=== PATIENT | female | born 1930 | race Caucasian/White ===

== ENCOUNTER 2017-06-16 15:35 | Inpatient (IN) | payer OTHER ==
[~2017-06-16] VITALS: Ht 157.5 cm; Wt 55.1 kg
[~2017-06-16 15:35] MED LIST: ACET325T53 PO; ALEN10TA6 PO; ALEN70TA3 PO; AMLO5TAB4 PO; ASCO500T20 PO; ASPI81TA2 PO; ATEN-167 PO; BENA20TA75 PO; CALC260T7 PO; DICL50TA9; DOCU-144 PO; DONE10TA44 PO; DULR10 RC; LIP10; MAGN400O4 PO; MEMA10TA12 PO; MULT-300 PO; MULTIVITAMIN WITH; NA P118E RC; PRO40 PO
[2017-06-16 19:37] VITALS: BP_SYST 149
[2017-06-16 20:00] VITALS: BP_SYST 149
[2017-06-16] MEDS ORDERED: DULR10 RC (20:31)
[2017-06-16] MEDS ORDERED: LACT1CAP7 PO (21:05)
[2017-06-16] MEDS ORDERED: CALC1TAB26 PO (21:09)
[2017-06-16] MEDS ORDERED: FAMO20TA8 PO (21:09)
[2017-06-16] MEDS ORDERED: MILK OF MAGNESIA 30 ML UDC PO PRN ×2 (21:30)
[2017-06-16] MEDS ORDERED: BISACODYL 10 MG/SUPPOSITORY RC PRN (21:30)
[2017-06-16] MEDS ORDERED: ACETAMINOPHEN 325 MG TABLET PO PRN (21:30)
[2017-06-16 21:55] LABS: BILIRUBIN,URINE NEGATIVE (NEGATIVE); CLARITY/URINE HAZY (CLEAR); COLOR,URINE YELLOW (YELLOW); GLUCOSE,URINE NEGATIVE (NEGATIVE); KETONES,URINE NEGATIVE (NEGATIVE); LEUKOCYTE ESTERASE ,URINE 2+ (NEGATIVE); NITRITE, URINE POSITIVE (NEGATIVE); PROTEIN URINE NEGATIVE (NEGATIVE); UROBILINOGEN,URINE 0.2 (0.2-1.0)
[2017-06-16 22:00] LABS: BLOOD, URINE TRACE (NEGATIVE)
[2017-06-16 22:06] LABS: BACTERIA,URINE MANY /HPF (None Seen); WBC,URINE 50-80 /HPF (0-3)
[2017-06-16] MEDS ORDERED: CEFEPIME 1 GM/VIAL (MAXIPIME) ONE (23:13)
[2017-06-16] MEDS: KCL 20 mEq in D5NS 1000 mL 1,000 ML IV SCH (23:23)
[2017-06-16] MEDS: CEFEPIME 1 GM in D5W 50 ML IV SCH (23:24)
[2017-06-17 00:45] VITALS: BP_SYST 152
[2017-06-17] MEDS: FAMOTIDINE 20 MG TABLET PO SCH (05:09)
[2017-06-17 07:28] LABS: BASOPHILS % (AUTO) 0.6 % (0.0-2.0); EOSINOPHILS # (AUTO) 0.3 K/uL (0.0-0.4); EOSINOPHILS % (AUTO) 4.6 % (0.0-4.0); HEMATOCRIT 34.6 % (36-48); HEMOGLOBIN 11.8 g/dL (12.0-16.0); LYMPHOCYTES # (AUTO) 1.8 K/uL (1.0-5.5); LYMPHOCYTES % (AUTO) 27.8 % (20.5-51.5); MEAN CORPUSCULAR HEMOGLOBIN 31 pg (27-31); MEAN CORPUSCULAR HGB CONC 34 % (32-36); MEAN CORPUSCULAR VOLUME 89 fL (79.0-98.0); MONOCYTES # (AUTO) 0.6 K/uL (0.0-1.0); MONOCYTES % (AUTO) 8.6 % (1.7-9.3); NEUTROPHILS # (AUTO) 3.8 K/uL (1.8-7.7); NEUTROPHILS % (AUTO) 58.4 % (40.0-70.0); PLATELET COUNT (AUTO) 237 K/uL (130-430); RED BLOOD CELL COUNT(AUTO) 3.87 MIL/uL (4.2-6.2); WHITE BLOOD COUNT (AUTO) 6.5 K/uL (4.8-10.8)
[2017-06-17 07:33] LABS: ANION GAP 8 (5-15); CALCIUM 8.5 mg/dL (8.4-11.0); CHLORIDE 111 mmol/L (98-107); CREATININE 0.92 mg/dL (0.55-1.30); GLUCOSE 103 mg/dL (70-99); POTASSIUM 4.9 mmol/L (3.5-5.1); SODIUM SERUM 144 mmol/L (136-145); UREA NITROGEN, BLOOD 23 mg/dL (8-21)
[2017-06-17 08:00] VITALS: BP_SYST 157
[2017-06-17] MEDS: ASPIRIN 81 MG TAB.CHEW PO SCH (09:16)
[2017-06-17] MEDS: BENAZEPRIL HCL 20 MG TABLET (LOTENSIN) PO SCH (09:16)
[2017-06-17] MEDS: DOCUSATE SODIUM 100 MG CAPSULE PO SCH (09:16)
[2017-06-17] MEDS: ENOXAPARIN SODIUM 40 MG/0.4 ML SYRINGE SUBCUT SCH (09:17)
[2017-06-17] MEDS: ATENOLOL 50 MG TABLET (TENORMIN) PO SCH (09:17)
[2017-06-17] MEDS: CEFEPIME 1 GM in D5W 50 ML IV SCH ×2 (09:23→20:43)
[2017-06-17] MEDS: KCL 20 mEq in D5NS 1000 mL 1,000 ML IV SCH (11:52)
[2017-06-17 12:24] VITALS: BP_SYST 128
[2017-06-17 16:00] VITALS: BP_SYST 121
[2017-06-17 20:00] VITALS: BP_SYST 146
[2017-06-17] MEDS: MEMANTINE HCL 5 MG TABLET PO SCH (20:43)
[2017-06-17] MEDS: DONEPEZIL HCL 5 MG TABLET (ARICEPT) PO SCH (20:43)
[2017-06-18] MEDS: KCL 20 mEq in D5NS 1000 mL 1,000 ML IV SCH ×2 (00:14→15:36)
[2017-06-18 00:36] VITALS: BP_SYST 122
[2017-06-18] MEDS: FAMOTIDINE 20 MG TABLET PO SCH (05:18)
[2017-06-18 08:00] VITALS: BP_SYST 145
[2017-06-18] MEDS: DOCUSATE SODIUM 100 MG CAPSULE PO SCH (08:55)
[2017-06-18] MEDS: ASPIRIN 81 MG TAB.CHEW PO SCH (08:56)
[2017-06-18] MEDS: ATENOLOL 50 MG TABLET (TENORMIN) PO SCH (08:56)
[2017-06-18] MEDS: BENAZEPRIL HCL 20 MG TABLET (LOTENSIN) PO SCH (08:56)
[2017-06-18] MEDS: ENOXAPARIN SODIUM 40 MG/0.4 ML SYRINGE SUBCUT SCH (08:57)
[2017-06-18] MEDS: CEFEPIME 1 GM in D5W 50 ML IV SCH ×2 (08:57→20:45)
[2017-06-18] MEDS ORDERED: ALENDRONATE SODIUM 70 MG TABLET (FOSAMAX) PO SCH (09:00)
[2017-06-18 11:40] VITALS: BP_SYST 111
[2017-06-18 16:43] VITALS: BP_SYST 126
[2017-06-18 20:00] VITALS: BP_SYST 144
[2017-06-18] MEDS: MEMANTINE HCL 5 MG TABLET PO SCH (20:46)
[2017-06-18] MEDS: DONEPEZIL HCL 5 MG TABLET (ARICEPT) PO SCH (20:46)
[2017-06-18 23:50] VITALS: BP_SYST 153
[2017-06-19] MEDS: KCL 20 mEq in D5NS 1000 mL 1,000 ML IV SCH (03:13)
[2017-06-19] MEDS: FAMOTIDINE 20 MG TABLET PO SCH (05:13)
[2017-06-19 06:44] LABS: BASOPHILS % (AUTO) 0.6 % (0.0-2.0); EOSINOPHILS # (AUTO) 0.4 K/uL (0.0-0.4); EOSINOPHILS % (AUTO) 6.2 % (0.0-4.0); HEMATOCRIT 33.3 % (36-48); HEMOGLOBIN 11.4 g/dL (12.0-16.0); LYMPHOCYTES # (AUTO) 1.8 K/uL (1.0-5.5); LYMPHOCYTES % (AUTO) 26.1 % (20.5-51.5); MEAN CORPUSCULAR HEMOGLOBIN 30 pg (27-31); MEAN CORPUSCULAR HGB CONC 34 % (32-36); MEAN CORPUSCULAR VOLUME 88 fL (79.0-98.0); MONOCYTES # (AUTO) 0.5 K/uL (0.0-1.0); MONOCYTES % (AUTO) 7.2 % (1.7-9.3); NEUTROPHILS % (AUTO) 59.9 % (40.0-70.0); PLATELET COUNT (AUTO) 203 K/uL (130-430); RED BLOOD CELL COUNT(AUTO) 3.77 MIL/uL (4.2-6.2); RED CELL DISTRIBUTION WIDTH 12.7 % (9.0-15.0); WHITE BLOOD COUNT (AUTO) 6.7 K/uL (4.8-10.8)
[2017-06-19 07:39] LABS: ANION GAP 7 (5-15); CALCIUM 8.6 mg/dL (8.4-11.0); CHLORIDE 110 mmol/L (98-107); CREATININE 0.77 mg/dL (0.55-1.30); GLUCOSE 102 mg/dL (70-99); POTASSIUM 4.5 mmol/L (3.5-5.1); SODIUM SERUM 138 mmol/L (136-145); UREA NITROGEN, BLOOD 14 mg/dL (8-21)
[2017-06-19 07:40] VITALS: BP_SYST 152
[2017-06-19] MEDS: BENAZEPRIL HCL 20 MG TABLET (LOTENSIN) PO SCH (08:35)
[2017-06-19] MEDS: ASPIRIN 81 MG TAB.CHEW PO SCH (08:35)
[2017-06-19] MEDS: CEFEPIME 1 GM in D5W 50 ML IV SCH (08:35)
[2017-06-19] MEDS: ENOXAPARIN SODIUM 40 MG/0.4 ML SYRINGE SUBCUT SCH (08:37)
[2017-06-19] MEDS: ATENOLOL 50 MG TABLET (TENORMIN) PO SCH (08:37)
[2017-06-19] MEDS: DOCUSATE SODIUM 100 MG CAPSULE PO SCH (08:37)
[2017-06-19 11:50] VITALS: BP_SYST 125
[2017-06-19 15:38] VITALS: BP_SYST 125
[2017-06-19 16:11] VITALS: BP_SYST 120
[2017-06-19] MEDS ORDERED: NITROFURANTOIN MONOHYD/M-CRYST 100 MG CAPSULE PO SCH (21:00)
== END 2017-06-19 17:22 | DRG 690 ==
LOC: SMU 19:05
PROVIDERS: ADMIT Family Medicine; ATTEND Family Medicine
DX: N39.0 Urinary tract infection, site not specified (principal); F03.90 Unspecified dementia, unspecified severity, without behavioral disturbance, psychotic disturbance, mood disturbance, and anxiety; I10 Essential (primary) hypertension; M81.0 Age-related osteoporosis without current pathological fracture; M19.90 Unspecified osteoarthritis, unspecified site; R35.0 Frequency of micturition; Z90.49 Acquired absence of other specified parts of digestive tract
CPT/HCPCS: 36415; 80048; 81000-TC; 85025; 87081; 87086; 87186-TC; J0692; J1650; J7060

== ENCOUNTER 2017-08-21 18:03 | Inpatient (IN) | payer MEDICAID, OTHER ==
[~2017-08-21] VITALS: Ht 157.5 cm; Wt 54.0 kg
[2017-08-21 18:03] VITALS: BP_SYST 89
[~2017-08-21 18:03] MED LIST changes: -ALEN10TA6 PO; -AMLO5TAB4 PO; -ASCO500T20 PO; +CALC1TAB26 PO; -CALC260T7 PO; -DICL50TA9; +FAMO20TA8 PO; +LACT1CAP7 PO; -LIP10; -MULTIVITAMIN WITH; -NA P118E RC; -PRO40 PO
[2017-08-21] MEDS ORDERED: MEGE400O PO (18:45)
[2017-08-21] MEDS ORDERED: ACET-73 PO (18:45)
[2017-08-21 18:51] LABS: MEAN CORPUSCULAR HEMOGLOBIN 31 pg (27-31)
[2017-08-21 19:00] LABS: ANION GAP 27 (5-15); CALCIUM 9.2 mg/dL (8.4-11.0); CHLORIDE 107 mmol/L (98-107); CREATININE 2.86 mg/dL (0.55-1.30); GLUCOSE 269 mg/dL (70-99); HEMATOCRIT 42.6 % (36-48); HEMOGLOBIN 14.4 g/dL (12.0-16.0); INR 1.2 (0.8-1.2); MEAN CORPUSCULAR HGB CONC 34 % (32-36); MEAN CORPUSCULAR VOLUME 92 fL (79.0-98.0); PLATELET COUNT (AUTO) 346 K/uL (130-430); POTASSIUM 4.2 mmol/L (3.5-5.1); PROTHROMBIN TIME 11.7 SECS (9.5-12.5); RED BLOOD CELL COUNT(AUTO) 4.64 MIL/uL (4.2-6.2); RED CELL DISTRIBUTION WIDTH 14.5 % (9.0-15.0); SODIUM SERUM 144 mmol/L (136-145); UREA NITROGEN, BLOOD 44 mg/dL (8-21)
[2017-08-21 19:03] LABS: WHITE BLOOD COUNT (AUTO) 42.2 K/uL (4.8-10.8)
[2017-08-21 19:06] LABS: ALANINE AMINOTRANSFERASE 23 U/L (12-78); ALBUMIN 3.6 g/dL (3.4-4.8); ASPARTATE AMINOTRANSFERASE 27 U/L (10-37); TOTAL BILIRUBIN 1.1 mg/dL (0.0-1.0)
[2017-08-21 19:07] LABS: ACETAMINOPHEN < 1 ug/mL (1-30)
[2017-08-21] MEDS ORDERED: NACL 0.9% 1,000 ML IV STA (19:09)
[2017-08-21] MEDS ORDERED: NACL 0.9% 1,000 ML IV ONE (19:15)
[2017-08-21] MEDS ORDERED: SODIUM BICARBONATE 8.4% JECT 50 MEQ/50 ML SYRINGE IVP ONE ×3 (19:15)
[2017-08-21 19:19] LABS: BAND % (MANUAL) 36 % (0-6); BASOPHILS % (MANUAL) 0 % (0-2); EOSINOPHILS % (MANUAL) 0 % (0-7); LYMPHOCYTES % (MANUAL) 7 % (20-46); MONOCYTES % (MANUAL) 5 % (0-11)
[2017-08-21] MEDS ORDERED: VANCOMYCIN HCL 1,000 MG in NS 250 ML IV ONE (19:30)
[2017-08-21] MEDS ORDERED: VANCOMYCIN HCL 1000 MG/VIAL IV ONE (20:00)
[2017-08-21] MEDS ORDERED: PIPERACILLIN/TAZO 3.375 GM in NS 50 ML IV ONE (20:15)
[2017-08-21] MEDS ORDERED: PIPERACILLIN/TAZOBACTAM 3.375 GM/VIAL (ZOSYN) IV ONE (20:31)
[2017-08-21 21:43] VITALS: BP_SYST 107; BP_SYST 122
[2017-08-21 22:00] VITALS: BP_SYST 90
[2017-08-21] MEDS ORDERED: ACETAMINOPHEN 325 MG TABLET PO PRN (22:00)
[2017-08-21] MEDS ORDERED: MILK OF MAGNESIA 30 ML UDC PO PRN (22:00)
[2017-08-21] MEDS ORDERED: BISACODYL 10 MG/SUPPOSITORY RC PRN (22:00)
[2017-08-21] MEDS ORDERED: LevALBUTEROL HCL 1.25 MG/0.5 ML *CONC.* VIAL.NEB (XOPENEX CONC.) INH PRN (22:15)
[2017-08-21] MEDS ORDERED: ONDANSETRON HCL 4 MG/2 ML VIAL IVP PRN (22:15)
[2017-08-21] MEDS: LevALBUTEROL HCL 1.25 MG/0.5 ML *CONC.* VIAL.NEB (XOPENEX CONC.) INH SCH (22:15)
[2017-08-21 22:18] VITALS: BP_SYST 89
[2017-08-21 23:00] VITALS: BP_SYST 107
[2017-08-21] MEDS: D5NS 1,000 ML IV SCH (23:23)
[2017-08-22] VITALS (24 sets, daily range): BP systolic 70–133
[2017-08-22] MEDS: D5NS 1,000 ML IV SCH ×3 (00:10→06:40)
[2017-08-22] MEDS: LevALBUTEROL HCL 1.25 MG/0.5 ML *CONC.* VIAL.NEB (XOPENEX CONC.) INH SCH ×4 (01:06→19:50)
[2017-08-22] MEDS ORDERED: FAMOTIDINE 20 MG TABLET PO SCH (06:00)
[2017-08-22] MEDS ORDERED: FAMOTIDINE 20 MG TABLET ONE (06:06)
[2017-08-22] MEDS: INSULIN REGULAR, HUMAN 100 UNITS/ML, 10 ML VIAL (novoLIN R) SUBCUT PRN ×4 (06:11→21:19)
[2017-08-22 06:24] LABS: HEMOGLOBIN 13.2 g/dL (12.0-16.0)
[2017-08-22 06:37] LABS: HEMATOCRIT 39.9 % (36-48); MEAN CORPUSCULAR HEMOGLOBIN 31 pg (27-31); MEAN CORPUSCULAR HGB CONC 33 % (32-36); MEAN CORPUSCULAR VOLUME 93 fL (79.0-98.0); PLATELET COUNT (AUTO) 240 K/uL (130-430); RED BLOOD CELL COUNT(AUTO) 4.28 MIL/uL (4.2-6.2); RED CELL DISTRIBUTION WIDTH 14.8 % (9.0-15.0); WHITE BLOOD COUNT (AUTO) 9.5 K/uL (4.8-10.8)
[2017-08-22] MEDS ORDERED: NOREPINEPHRINE 4 MG/4 ML VIAL IV ONE (06:52)
[2017-08-22 06:54] LABS: ANION GAP 26 (5-15); CHLORIDE 116 mmol/L (98-107); CREATININE 2.94 mg/dL (0.55-1.30); GLUCOSE 303 mg/dL (70-99); POTASSIUM 3.9 mmol/L (3.5-5.1); SODIUM SERUM 153 mmol/L (136-145); UREA NITROGEN, BLOOD 44 mg/dL (8-21)
[2017-08-22] MEDS: NOREPINEPHRINE BITARTRATE 4 MG in D5W 246 ML IV PRN ×3 (08:02→21:51)
[2017-08-22] MEDS: MEGESTROL ACETATE 400 MG/10 ML UDC PO SCH ×2 (08:06→21:00)
[2017-08-22] MEDS ORDERED: MEROPENEM 500 MG in NS 50 ML IV SCH (09:00)
[2017-08-22] MEDS ORDERED: DOCUSATE SODIUM 100 MG CAPSULE PO SCH (09:00)
[2017-08-22] MEDS ORDERED: ENOXAPARIN SODIUM 30 MG/0.3 ML SYRINGE SUBCUT SCH (09:00)
[2017-08-22] MEDS ORDERED: ATENOLOL 50 MG TABLET (TENORMIN) PO SCH (09:00)
[2017-08-22] MEDS ORDERED: ASPIRIN 81 MG TAB.CHEW PO SCH (09:00)
[2017-08-22 10:29] LABS: BAND % (MANUAL) 39 % (0-6); MONOCYTES % (MANUAL) 8 % (0-11)
[2017-08-22 10:32] LABS: BASOPHILS % (MANUAL) 0 % (0-2); EOSINOPHILS % (MANUAL) 0 % (0-7); LYMPHOCYTES % (MANUAL) 12 % (20-46)
[2017-08-22] MEDS ORDERED: NS 500 ML IV ONE (11:30)
[2017-08-22] MEDS: PIPERACILLIN/TAZO 2.25G/DEX-IS 50 ML IV SCH ×2 (12:46→17:01)
[2017-08-22] MEDS ORDERED: D5/0.45 NS 1,000 ML IV SCH (14:15)
[2017-08-22] MEDS ORDERED: SODIUM BICARBONATE 8.4% JECT 50 MEQ/50 ML SYRINGE ONE ×4 (15:04→16:02)
[2017-08-22] MEDS: SODIUM BICARBONATE 8.4% JECT 50 MEQ/50 ML SYRINGE IVP SCH ×3 (15:45→16:15)
[2017-08-22] MEDS: DOPamine PREMIX 250 ML IV PRN ×2 (16:45→21:52)
[2017-08-22] MEDS ORDERED: SODIUM BICARBONATE 8.4% VIAL 150 MEQ in D5W 1,000 ML IV SCH (17:00)
[2017-08-22] MEDS ORDERED: HYDROCORTISONE SOD SUCC 100 MG/2 ML VIAL IVP ONE (17:30)
[2017-08-22] MEDS ORDERED: MEMANTINE HCL 5 MG TABLET PO SCH (21:00)
[2017-08-22] MEDS ORDERED: FAMOTIDINE PF 20 MG/2 ML VIAL IVP SCH (21:00)
[2017-08-22] MEDS ORDERED: DONEPEZIL HCL 5 MG TABLET (ARICEPT) PO SCH (21:00)
[2017-08-22] MEDS: ATROPINE SULFATE 0.5 MG/5 ML SYRINGE IVP PRN (21:35)
[2017-08-22] MEDS ORDERED: HYDROCORTISONE SOD SUCC 100 MG/2 ML VIAL IVP SCH (22:00)
[2017-08-23] VITALS: BP_SYST 74
[2017-08-23] MEDS: ATROPINE SULFATE 0.5 MG/5 ML SYRINGE IVP PRN (00:07)
[2017-08-23] MEDS: PIPERACILLIN/TAZO 2.25G/DEX-IS 50 ML IV SCH (00:12)
[2017-08-23] MEDS ORDERED: SODIUM BICARBONATE 8.4% JECT 50 MEQ/50 ML SYRINGE IVP ONE (00:35)
[2017-08-23] MEDS ORDERED: VANCOMYCIN HCL 1,000 MG in NS 250 ML IV SCH (21:00)
== END 2017-08-23 00:36 | disposition expired | DRG 871 ==
LOC: SED 18:03 → SIC 20:41
PROVIDERS: ADMIT Family Medicine; ATTEND Family Medicine
PROC: 05H733Z Insertion of Infusion Device into Right Axillary Vein, Percutaneous Approach (ICD-10-PCS; principal; 2017-08-22)
PROC: B54MZZA Ultrasonography of Right Upper Extremity Veins, Guidance (ICD-10-PCS; 2017-08-22)
PROC: 5A09357 Assistance with Respiratory Ventilation, Less than 24 Consecutive Hours, Continuous Positive Airway Pressure (ICD-10-PCS; 2017-08-23)
DX: A41.9 Sepsis, unspecified organism (principal); R65.21 Severe sepsis with septic shock; J69.0 Pneumonitis due to inhalation of food and vomit; J96.01 Acute respiratory failure with hypoxia; N17.0 Acute kidney failure with tubular necrosis; G93.41 Metabolic encephalopathy; E87.2 Acidosis; E87.0 Hyperosmolality and hypernatremia; D68.9 Coagulation defect, unspecified; G30.9 Alzheimer's disease, unspecified; F02.80 Dementia in other diseases classified elsewhere, unspecified severity, without behavioral disturbance, psychotic disturbance, mood disturbance, and anxiety; K21.9 Gastro-esophageal reflux disease without esophagitis; N18.9 Chronic kidney disease, unspecified; I12.9 Hypertensive chronic kidney disease with stage 1 through stage 4 chronic kidney disease, or unspecified chronic kidney disease; M19.90 Unspecified osteoarthritis, unspecified site; I95.9 Hypotension, unspecified; R73.9 Hyperglycemia, unspecified; E86.0 Dehydration; M81.0 Age-related osteoporosis without current pathological fracture; Z86.73 Personal history of transient ischemic attack (TIA), and cerebral infarction without residual deficits; Z87.01 Personal history of pneumonia (recurrent); Z88.6 Allergy status to analgesic agent; Z79.899 Other long term (current) drug therapy; Z90.49 Acquired absence of other specified parts of digestive tract
CPT/HCPCS: 36415; 36600; 70450-TC; 71045; 80048; 80053; 82009-TC; 82803-TC; 82962; 83605; 85007; 85027; 85610-TC; 87040-TC; 87081; 93005; 94640; 96361; 96365; 96366; 96368; 96375; 96376; 99291; C1751; G0480; J1265; J1650; J1720; J1815; J2185; J2543; J3370; J3490; J7030; J7040; J7042; J7050; J7060; J7612